=== PATIENT | female | born 1960 | race Two or more races ===

== ENCOUNTER 2024-12-25 22:04 | Inpatient (IN) | payer MEDICAID ==
[~2024-12-25] VITALS: Ht 152.4 cm; Wt 86.4 kg
[~2024-12-25 22:04] MED LIST: CANNABIS INH; CYCL-920 PO; FAMO40TA7 PO; HYDR-3964 PO; TRAM50TA2 PO; WALKERFR; ZOF4I PO
--- NOTE | 2024-12-25 22:22 | ELECTROCARDIOGRAPH REPORT ---
[facility] Test Date: 2024-12-25 Test Time: 22:13:28 Pat Name: HOOD DUNCAN Department: EMERGENCY ROOM Room: Gender: F Bulk Mail Technician: NELY : 1960 Requested By: ZOE LEE Order Number: [id number] Reading MD: Measurements Intervals Wiley Rate: 65 P: 8 FL: 184 QRS: -13 QRSD: 96 T: 93 QT: 439 QTc: 457 Interpretive Statements Sinus rhythm Paired ventricular premature complexes Borderline low voltage, extremity leads Nonspecific T abnormalities, lateral leads Please click the below link to view image of tracing.
--- NOTE | 2024-12-25 22:25 | Physician Documentation ---
History of Present Illness ~ Chief Complaint: Nausea Stated Complaint: TRANSFER Time Seen by MD: 22:13 Source: patient, EMS, RN notes reviewed, EMS notes reviewed, old records Mode of Arrival: EMS Exam Limitations: no limitations HPI Chief Complaint: Epigastric pain, nausea and vomiting Caveat: None Independent Historians: Dr. Quan, paramedics History of Present Illness: Patient is a 64-year-old woman that went to [facility] earlier today for epigastric pain, diaphoresis, nausea and vomiting and shortness a breath. Patient was not having any chest pain. Kasey ledbetter arrived to [facility] extremely hypertensive 210/110. Patient was found to have elevated troponins trending upwards consistent with an NSTEMI. Patient was given aspirin, Lovenox and nitro drip. Patient's blood pressure improved and all of the patient's symptoms improved. Patient is currently not having any chest pain or epigastric pain. Patient isn't diaphoretic. Patient has no complaints at this time. Review of systems: All systems were reviewed and are negative except for what is indicated in the history of present illness. Past Medical History: HTN, HLD Past Surgical History: Noncontributory Social History: No tobacco use, no alcohol use, no drug use Medications: Reviewed as documented Nursing Notes Allergies: Reviewed as documented in Nursing Notes Medication Reconciliation Allergies: Coded Allergies: Penicillins (Verified Adverse Reaction, Mild, RASH, 12/25/24) Scheduled Atorvastatin Calcium (Atorvastatin Calcium), 1 TAB PO HS, (Reported) Cyclobenzaprine HCl (Cyclobenzaprine HCl), 1 TAB PO BID, (Reported) Duloxetine HCl (Duloxetine HCl), 1 CAP PO DAILY, (Reported) Losartan Potassium (Losartan Potassium), 1 TAB PO DAILY, (Reported) Omeprazole (Omeprazole), 1 CAP PO QAM, (Reported) Discontinued Medications Famotidine (Famotidine), 1 TABLET PO DAILY, (Reported) Discontinued Reason: patient no longer taking Hydrocodone Bit/Acetaminophen (Hydrocodon-Acetaminophen 5-325), 1-2 TAB PO Q4HPRN, (Reported) Discontinued Reason: patient no longer taking Ondansetron Hcl/Pf (Zofran 4MG/2ML Vial), 4 MG PO Q6H PRN for nausea/vomiting Discontinued Reason: patient no longer taking Tramadol HCl (Tramadol HCl), 2 TABLET PO BID, (Reported) Discontinued Reason: patient no longer taking Walker, Front Wheeled (Walker, Front-wheeled), APPLIC, (DME) Discontinued Reason: patient no longer taking [Cannabis], 1-2 INH DAILY, (Reported) Discontinued Reason: patient no longer taking Review of Systems All Other Systems at this time: Reviewed and Negative ROS Patient denies any other acute symptoms other than above. All other systems are negative Physical Exam Vital Signs: RN Vital Signs have been reviewed: Yes, Heart Rate: 67, Respiratory Rate: 16, BP: 121/69, Pulse Oximetry: 94, Weight: 86.400 Pulse Oximetry Reflects: adequate oxygenation Physical Exam General Appearance: No distress, obese HEENT: Normal OP, moist oral mucosa, PERRL, EOMI Neck: supple, normal ROM, trachea midline Pulmonary: No respiratory distress, CTA, BS equal Cardiac: RRR, no murmur, rub or gallop, GI: nondistended, soft, nontender, normal bowel sounds, no guarding, no rebound Extremities: normal ROM, no swelling, non-tender Skin: intact, dry, warm, no rashes Neuro: AAOx3, speech is clear, no focal motor weakness Psych: normal affect, good eye contact, no apparent hallucination, normal speech Progress Results/Orders Results/Orders Orders - ZOE LEE MD Chest,Single View (12/25/24 22:20) Saline Lock (12/25/24 22:20) Monitor (12/25/24 22:20) Oxygen (12/25/24 22:20) Page Hospitalist (12/25/24 22:25) Fill Out Med Reconciliation (12/25/24 22:25) Nitroglycerin-Tridil 50mg/D5w (Tridil (N (12/25/24 22:30) Page Hospitalist (12/25/24 22:34) Fill Out Med Reconciliation (12/25/24 22:34) Completed Orders - ZOE LEE MD Cbc/Diff (12/25/24 22:20) MG (12/25/24 22:20) Electrocardiogram (12/25/24 22:20) PBNP (12/25/24 22:20) Chest,Single View (12/25/24 22:20) Pt Inr (12/25/24 22:20) PTT (12/25/24 22:20) Hs Troponin I W Calculations (12/25/24 22:20) Hs Troponin I W Calculations (12/26/24 00:20) Hs Troponin I W Calculations (12/26/24 01:20) Medications Received in ER Medications (Trade) Dose Ordered Sig/Aroldo Route PRN Reason Start Time Stop Time Status Last Admin Dose Admin Nitroglycerin/ Dextrose 250 ml @ 0 mls/hr Q0M PRN IV chest pain 12/25/24 22:30 12/25/24 22:41 21 MLS/HR Vital Signs 12/25/24 12/25/24 12/25/24 12/25/24 22:10 22:20 22:41 23:06 Temp 98.4 Pulse 67 74 Resp 16 16 18 B/P (MAP) 121/69 128/76 113/69 (84) Pulse Ox 94 98 Laboratory Tests Test 12/25/24 22:33 White Blood Count 13.4 H Red Blood Count 4.30 Hemoglobin 12.5 Hematocrit 38.0 Mean Corpuscular Volume 88.4 Mean Corpuscular Hemoglobin 29.0 Mean Corpuscular Hemoglobin Concent 32.8 L Red Cell Distribution Width 13.9 Platelet Count 342 Mean Platelet Volume 8.2 Neutrophils (%) (Auto) 92.0 H Lymphocytes (%) (Auto) 5.4 L Monocytes (%) (Auto) 1.8 L Eosinophils (%) (Auto) 0.5 Basophils (%) (Auto) 0.3 Neutrophils # (Auto) 12.3 H Lymphocytes # (Auto) 0.7 L Monocytes # (Auto) 0.2 Eosinophils # (Auto) 0.1 Basophils # (Auto) 0.0 CBC Comment Prothrombin Time 10.5 INR International Normalized Ratio 1.0 Activated Partial Thromboplast Time 23 Coagulation Comments Magnesium Level 1.8 Troponin I High Sensitivity 2145 *H Pro-B-Type Natriuretic Peptide 1114 H Medical Decision Making Additional info obtained from: old records Findings Differential diagnosis includes but is not limited to: Acute coronary syndrome, pulmonary embolus, pericarditis, EKG independent interpretation: Performed at 10:13 p.m.. Normal sinus rhythm, heart rate 65, leftward axis, normal ST segments Chest x-ray, single view, indication: NSTEMI, elevated troponin epigastric pain Independent interpretation: Lungs are clear, normal mediastinum, normal cardiac silhouette, no acute cardiopulmonary process Laboratory data independent interpretation: CBC: LEUKOCYTOSIS OF 13.4 CMP: Na is mildly elevated at 1.25 1st troponin: 2145 2nd troponin: 2877 3rd troponin 2867 BNP: 1114 Emergency department course/medical decision-making: Patient is a 64-year-old woman referred from [facility] for e levated troponin consistent with NSTEMI. Patient was given Lovenox prior to arrival. Patient is on a nitro drip for severe hypertension. Blood pressure has improved. Patient is on 70 micrograms/minute of nitro. This has not required any titration. Patient is currently asymptomatic. Patient will require admission for further cardiac workup. Test results and treatment plan reviewed with the patient. Consultation/communications: 11:37 p.m.: Case discussed with the resident hospitalist, Dr. Reyes for a dmission. He will evaluate the patient. Departure Time of Disposition: 22:23 Disposition: 09 ADMITTED INPATIENT Admitted to Inpatient Unit: to hospitalist Admission Level of Care: PCU with Tele Impression: Primary Impression: NSTEMI (non-ST elevated myocardial infarction) Additional Impression: Hypertensive emergency Condition: Fair Education Educated: Patient Educated regarding: diagnosis, treatment Signature Scribe Signature: No scribe Attestation: No scribe ZOE LEE MD Dec 25, 2024 22:25
[2024-12-25] MEDS: nitroGLYCERIN-Tridil 50MG/D5W 250 ML IV PRN (22:41)
[2024-12-25 22:45] LABS: MEAN PLATELET VOLUME 8.2 FL (7.4-10.4); RED CELL DISTRIBUTION WIDTH 13.9 % (11.5-14.5)
[2024-12-25 22:52] LABS: APTT 23 SECONDS (22-32); INR 1.0 INR
[2024-12-25 23:03] LABS: PRO BRAIN NATRIURETIC PEPTIDE 1114.0 PG/ML (0-125)
--- NOTE | 2024-12-25 23:08 | RADIOLOGY REPORT ---
EXAM: DI CHEST,SINGLE VIEW CLINICAL HISTORY: CP TECHNIQUE: Single AP view of the chest WID: COMPARISON: None FINDINGS: Lines and tubes: None Chest: The heart size and pulmonary vasculature is within normal limits. No pleural effusion, pneumothorax, or consolidation. The osseous structures are grossly intact. Small to moderate hiatal hernia. IMPRESSION: No acute cardiopulmonary abnormality. Small to moderate sized hiatal hernia.
[2024-12-26] VITALS (7 sets, daily range): BP systolic 124–145; BP diastolic 69–77; PULSE 70–78; RESP 11–18; TEMP 97.3–98.6; O2SAT 96–98
[2024-12-26] MEDS ORDERED: LOSA50TA64 PO (00:45)
[2024-12-26] MEDS ORDERED: OMEP20CA16 PO (00:45)
[2024-12-26] MEDS ORDERED: ATOR20TA66 PO (00:45)
[2024-12-26] MEDS ORDERED: DULO20CA18 PO (00:45)
[2024-12-26] MEDS ORDERED: magnesium hydroxide 30ml (MOM) UD suspension PO PRN (01:00)
[2024-12-26] MEDS ORDERED: ondansetron/PF 4mg/2ml inj IV PRN ×2 (01:00→13:05)
[2024-12-26] MEDS ORDERED: magnesium Cl slow-release 64mg tablet PO PRN (01:00)
[2024-12-26] MEDS ORDERED: magnesium sulf-water 4G/100mL 100 ML IV PRN (01:00)
[2024-12-26] MEDS ORDERED: potassium Cl 20 mEq SR tablet PO PRN ×2 (01:00)
[2024-12-26] MEDS ORDERED: mag hydrox/Alum hydrox/simeth 30ml oral suspension PO PRN (01:00)
[2024-12-26] MEDS ORDERED: potassium Cl 40MEQ/1/2NS 520ml 520 ML IV PRN (01:00)
[2024-12-26] MEDS ORDERED: magnesium sulf-water 2g/50mL 50 ML IV PRN (01:00)
[2024-12-26] MEDS: PERFLUTREN PROTEIN-A MICROSPHR (Optison) 0.22 MG/ML 3ML VIAL IV ONE (01:25)
[2024-12-26 01:43] LABS: MEAN PLATELET VOLUME 8.2 FL (7.4-10.4); RED CELL DISTRIBUTION WIDTH 14.0 % (11.5-14.5)
[2024-12-26 01:59] LABS: CHOL/HDL RATIO 2.4 (0.00-4.99); CREATININE 1.25 MG/DL (0.40-0.90); LDL CHOLESTEROL 64 MG/DL (50-100); TOTAL CARBON DIOXIDE 23.7 MMOL/L (24-32); eCRCL 34 ML/MIN; eGFR 43 ML/MIN
[2024-12-26] MEDS: heparin 10,000 units/1 ML INJ IV ONE (02:05)
--- NOTE | 2024-12-26 02:06 | HISTORY AND PHYSICAL-Residence ---
History & Physical Providers to CC Resident Creating Document: ERUMTAMERA EGAN ~ History of Present Illness Reason for Admit\Complaint: Vomitting,Sweating History of Present Illness This is a 64-year-old with known history of hypertension fibromyalgia was transferred from [facility] for epigastric pain, nausea and vomitting and was found to have elevated troponins, therefore she was sent to [facility] for further management. Patient states that in the morning at 9:00 o clock she started having episodes of vomiting, sweating and she could not eat or drink anything because of vomiting.In the afternoon she started developing a epigastric pain followed by fast breathing which prompted her to go to [place] [facility] ER. CT Scan with IV contrast was also done in [place] which ruled out ruptured peptic ulcer, pancreatitis. At [place] BP 210/110 , received IV labetalol 40 mg iv push and nitroglycerin drip at [place]. Patient reports 10 episodes of vomiting total. Apart from that patient reports chronic history of pain in all over her body for which she cannabis which help her in pain. In addition to that she had chronic abdominal pain on and off since many years due to hiatal hernia and she mentions she is due for her surgery soon. Allergies: Coded Allergies: Penicillins (Verified Adverse Reaction, Mild, RASH, 12/25/24) Home Medications Home Medications Active Reported Atorvastatin Calcium 20 Mg Tablet 1 Tab PO HS Losartan Potassium 50 Mg Tablet 1 Tab PO DAILY Duloxetine HCl 20 Mg Capsule.dr 1 Cap PO DAILY Omeprazole 20 Mg Capsule.dr 1 Cap PO QAM Cyclobenzaprine HCl 5 Mg Tablet 1 Tab PO BID Past Medical History Past Medical History Hypertension Hiatal hernia Past Surgical History Surgical History Comment Partial hysterectomy Bladder lift Right knee surgery Family History Family History: FH: COPD (chronic obstructive pulmonary disease) (Father Emphysema) FH: heart disease (Mother and father heart disease) FH: thyroid disease (Father) Past Social History Social History Comment Occasionally smokes cigarette Occasional alcohol drink Canabis user Occupation: employed ROS All Other Systems: Reviewed and Negative ROS All reviewed and negative except epigastric pain, vomitting, bilatera lower extremity swelling and dilated tortous veins on both legs noted. Exam Vitals: Vital Signs Date Time Temp Pulse Resp B/P (MAP) Pulse Ox O2 Delivery O2 Flow Rate FiO2 12/26/24 00:21 62 16 141/73 (95) 96 12/25/24 22:10 98.4 General: General: awake, alert oriented to place, time, and person HEENT: No pallor present, no icterus, moist mucous membranes Neck: No masses and tenderness Resp: Unlabored. Lungs clear to auscultation bilaterally. Chest: Normal expansion. Cardiovascular: Regular Rate and rhythm, normal S1 and S2 without murmur, rub or gallop Abdomen: Soft and non tender and no organomegaly, no guarding and rigidity, bowel sounds present Neuro: No focal weakness in the upper and lower limb muscles, power of the muscles 5/5 bilateral upper and lower extremities, normal reflexes bilaterally. Cranial nerves intact Extremities: No cyanosis,clubbing, bilateral lower leg swelling, dilated tortuos veins in both legs noted. Skin: Warm and Dry. Psych: Normal affect Diagnostic Data Last Recorded Lab Results: 12/26/2412812/26/24128 Diagnostic Data: Laboratory Tests Test 12/25/24 22:33 Prothrombin Time 10.5 SECONDS (9.0-12.0) INR International Normalized Ratio 1.0 INR Activated Partial Thromboplast Time 23 SECONDS (22-32) Coagulation Comments Advance Care Planning Advanced Care plannin - 30 Minutes (I spent 17 minutes in discussing various resuscitative measures with the patient and she chose to be full) Additional Plan This is a 64-year-old with known history of hypertension fibromyalgia was transferred from [facility] for epigastric pain, nausea and vomitting and was found to have elevated troponins, therefore she was sent to [facility] for further management. Patient states that in the morning at 9:00 o clock she started having episodes of vomiting, sweating and she could not eat or drink anything because of vomiting.In the afternoon she started developing a epigastric pain followed by fast breathing which prompted her to go to [place] [facility] ER. She denies chest pain and dizziness. Plan Acute Coronary Syndrome/NSTEMI EKG sinus rhythm, no stemi. VINH score is 3 Tropnins trending upward T x3 2145/2877/2867 Pro Bnp 1114 Patient received aspirin 324 mg, lovenix 40 at [facility]. Received nitroglycern drip and heparin drip Started on aspirin 81 mg, atorvastatin 40 mg, metoprolol succinate 25 mg Consult Cardiology Hypertension Emergency At [place] BP 210/110 , received IV labetalol 40 mg iv push and nitroglycerin drip at [facility]. Patient here at [facility] started nitroglycern drip at 70 ,titrated to 30 mcg Monitor Signs of end organ damage. Acute kidney Injury likely due to hypertensive emergency or due to recent adminstration of iv contrast Creatinine 1.25 baseline creatinine unknown held losartan Held fluids as patient Pro Bnp is 1114 and bilateral leg swelling. Monitor Blood Pressure Fibromyalgia Continue Cymbalta 20 mg PO DVT Prophylaxis: SCD Code Status: Full Code Date of Service: Dec 26, 2024 Billing Provider: FRANCESCO OLEARY MD, SANJAY, RES Dec 26, 2024 02:06
[2024-12-26] MEDS: heparin 25,000 UNIT/250ml bag 250 ML IV PRN (02:08)
[2024-12-26] MEDS: MESSAGE TO NURSING IV ONE ×2 (02:38→09:35)
[2024-12-26] MEDS ORDERED: TIRZ5PEN3 SUBCUT (05:28)
[2024-12-26] MEDS ORDERED: DICL-157 PO (05:28)
[2024-12-26] MEDS: K and/or MAG REPLACEMENT MC SCH (08:00)
[2024-12-26] MEDS: docusate sod 100mg capsule PO SCH (08:00)
[2024-12-26] MEDS: duloxetine 20mg capsule.DR PO SCH (08:12)
[2024-12-26] MEDS: metoprolol succinate 25mg (24-HOUR) SR. Tablet PO SCH (08:13)
[2024-12-26] MEDS: pantoprazole 40mg Tablet.DR PO SCH (08:15)
[2024-12-26 09:07] LABS: APTT 31 SECONDS (22-32)
[2024-12-26] MEDS ORDERED: heparin 25,000 UNIT/250ml bag 250 ML IV PRN (09:22)
[2024-12-26] MEDS: heparin 10,000 units/1 ML INJ IV PRN (09:24)
--- NOTE | 2024-12-26 10:59 | CONSULTATION REPORT ---
Cardiac Consultation Report Providers to CC ~ Subjective Subjective Cardiology consult: Previously asymptomatic 64-year-old female was camping when she suddenly began to experience severe nausea went to the local emergency room was found to be very hypertensive. Multiple episodes of vomiting. Had epigastric pain. Resting electrocardiogram was unremarkable. She was treated as GI distress and hypertensive car crisis. Subsequently troponins liv to two and she was transferred for further care and placed on intravenous heparin. She is pain-free at this time. I asked for the director of technology to come in an echocardiogram performed with normal wall motion noted. She plans to have left total shoulder surgery with Dr. Joselo Nru in a few weeks... She recognized me and said that I saw her a week or two ago when she was completely asymptomatic in and was scheduled for surgery Medications THC for pain relief. Atorvastatin losartan duloxetine omeprazole cyclobenzaprine. She has chronic reflux chronic myofascial pain hypertension. He does not smoke. No recreational drug use. Objective Vitals Vital Signs Date Time Temp Pulse Resp B/P (MAP) Pulse Ox O2 Delivery O2 Flow Rate FiO2 12/26/24 08:14 78 12/26/24 08:00 18 96 Room Air 12/26/24 06:58 98.1 124/69 (87) Lab Results: 12/26/24 0129 12/26/24 0129 Objective Carotid no bruit chest clear to auscultation percussion heart no murmur no S3 gallop no rub abdomen active bowel sounds nontender no bruits pulses plus two upper and lower extremities no edema. Speech fluent no obvious lateralizing sign of a stroke. Coagulation Studies Laboratory Tests Test 12/25/24 22:33 12/26/24 08:13 Prothrombin Time 10.5 SECONDS (9.0-12.0) INR International Normalized Ratio 1.0 INR Activated Partial Thromboplast Time 31 SECONDS (22-32) APTT (Heparin Protocol) 31 SECONDS (45-60) L Coagulation Comments Problem\Assessment\Plan Additional Plan Impression non ST elevated myocardial infarction. Recommendation diagnostic coronary angiography intervention as may be needed. Risks benefits alternatives discussed with patient and she would like to proceed. Risks include and not restricted to stroke myocardial infarction renal failure neurologic vascular complications bleeding complications allergic reaction emergency coronary bypass grafting and its attendant complications. SAVI VALLADARES MD Dec 26, 2024 10:59
[2024-12-26] MEDS: normal saline 1000ml 1,000 ML IV SCH ×2 (11:10→13:18)
[2024-12-26] MEDS ORDERED: fentaNYL/PF 50MCG/1 ML 2ML syringe ONE (11:12)
[2024-12-26] MEDS ORDERED: LIDOcaine 1% 30ml preserv. free vial ONE (11:12)
[2024-12-26] MEDS ORDERED: midazolam 1 mg/ML 2ml injection ONE (11:13)
[2024-12-26] MEDS ORDERED: iohexol 350 MG/ML 50ML vial IV ONE (11:13)
--- NOTE | 2024-12-26 12:46 | CARDIOLOGY REPORT ---
APPROVED REPORT EXAM: Comprehensive 2D, Doppler, and color-flow Echocardiogram. Patient Location: 3014 [address] Blood Pressure: 124/69 mmHg Heart Rate: 72 bpm Rhythm: SINUS Indications CHEST PAIN ELEVATED PROBNP (1114) HS TROPONIN 2145, 2877, 2867 HYPERTENSION HYPERLIPIDEMIA Medical Superintendent: Curtis Dan MD Previous echo: none available (after hours) 2D Dimensions IVSd 1.1 (0.7-1.1cm) LVDd 4.1 cm PWd 1.1 (0.7-1.1cm) IVSs 1.4 (0.8-1.2cm) LVDs 2.6 (2.5-4.0cm) PWs 1.7 (0.8-1.2cm) LVOT Diameter 2.03 (1.8-2.4cm) LVEF(%) 65.5 (>50%) Ao Asc Diam.3.28 cmFS (%) 35.6 % SV 47.5 ml CO 3.8 L/min M-Mode Dimensions Left Atrium(MM) 2.71 (2.5-4.0cm) Aortic Root 2.45 (2.2-3.7cm) Aortic Cusp Exc 2.01 (1.5-2.0cm) MV EPSS 0.0 (<0.5cm) Aortic Valve AoV Peak Phil. 163.4 cm/s AoV VTI 32.2 cm AO Peak GR. 10.7 mmHg AO Mean GR. 6 mmHg LVOT VTI 29.30 cm LVOT Peak Phil. 122.3 cm/s ZURI(VTI)/BSA 2.93 cm2/m2 ZURI (VTI) 2.93 cm2 Mitral Valve MV E Velocity 83.4 cm/s MV Peak Gr. 5 mmHg MV DECEL TIME 212 ms MV A Velocity 107.5 cm/s MV PHT 44 ms E/A Ratio 0.8 MVA (PHT) 5.00 cm2 MV WSug958.4 cm/s TDI Medial E' P. V 6.18 cm/s E/Medial E' 13.5 Tricuspid Valve TR P. Velocity 253 cm/s RAP ESTIMATE 10 mmHg TR Peak Gr. 26 mmHg RVSP 36 mmHg Pulmonary Vein S1 Velocity 69.5 cm/s D2 Velocity 34.9 cm/s PVa Citksrio04.4 cm/s PVa Koaepvlv19 msec LEFT VENTRICLE Normal LV size and wall thickness. Overall systolic function is normal. Overall LVEF is 60-65%. RIGHT VENTRICLE RV appears normal size and function. ATRIA LA size is normal. AORTIC VALVE Trileaflet AV appears mildly sclerotic without stenosis or insufficiency. MITRAL VALVE Mild MV annular calcification without stenosis. Trace regurgitation. TRICUSPID VALVE TV appears structurally normal with trace regurgitation. PULMONIC VALVE Normal PV without stenosis, physiologic insufficiency. GREAT VESSELS Aortic root is normal in size. Ascending aorta is normal in size. PERICARDIUM Normal pericardium. No effusion. Other Information Study Quality: Adequate Conclusion Overall LVEF is 60-65%. Normal LV size and wall thickness. Overall systolic function is normal. RV appears normal size and function. Trileaflet AV appears mildly sclerotic without stenosis or insufficiency. Mild MV annular calcification without stenosis. Trace regurgitation. TV appears structurally normal with trace regurgitation. Normal PV without stenosis, physiologic insufficiency. Normal pericardium. No effusion.
--- NOTE | 2024-12-26 12:58 | CARDIAC CATH REPORT ---
Cardiology Post Cath Findings Findings Findings: Cardiology progress note post catheterization: Uncomplicated left heart catheterization coronary angiography left ventriculography. Findings 1. Apical akinesis hyper dynamic mid left ventricle. Ejection fraction 70+%. 2. Smooth normal left coronary artery and right coronary artery. Comment: Patient has Takotsubo's cardiomyopathy. Recommendation: At beta-hermilo and continue. Plavix start continue. Patient intolerant of aspirin. Continue home medications. She is on losartan and that dose may need to be reduced depending on her blood pressure with beta hermilo. Bedrest for 6 hours. Ambulate vigorously in a.m. if stable could be discharged on 12/27. SAVI VALLADARES MD Dec 26, 2024 12:58
[2024-12-26] MEDS ORDERED: OXAZEpam 15mg capsule PO PRN (13:05)
[2024-12-26] MEDS ORDERED: HYDROcodone/acetaminophen 10/325mg tab PO PRN (13:05)
[2024-12-26] MEDS ORDERED: DICL75TA5 PO (13:10)
[2024-12-26] MEDS ORDERED: CYCL5TAB4 PO (13:10)
[2024-12-26] MEDS ORDERED: OMEP20CA15 PO (13:10)
[2024-12-26] MEDS: TIRZEPATIDE 5 MG/0.5 ML SQ SCH (13:15)
--- NOTE | 2024-12-26 16:04 | PROGRESS NOTE- Residence ---
Progress Note - Resident Providers to CC Resident Creating Document: LAYA HARRINGTON RES ~ Antibiotic Timeout Antibiotic Ordered?: No Subjective Patient seen and examined today. Denies any chest pain or abdominal now. On- call education managers-Dr. Dan was consulted and she was taken to cardiac catheterization and was brought back Objective Vital Signs Date Time Temp Pulse Resp B/P (MAP) Pulse Ox O2 Delivery O2 Flow Rate FiO2 12/26/24 15:53 97.3 71 13 125/70 (88) 97 Room Air Result Diagram: 12/26/24 0129 12/26/24 0129 General: Alert and oriented x 4 HEENT: Normocephalic and atraumatic. Pupils equal round and reactive to light and accommodation. Extraocular movements intact. Oral and nasal mucosa moist Neck: Trachea is in midline. No masses or JVD Lungs: Bilateral normal breath sounds. No crackles, rhonchi or wheezes Heart: Regular rate and rhythm. S1-S2 normal. No rubs or murmurs Abdomen: Soft, nontender and nondistended. Bowel sounds present SUPERVISING APPRAISER: No gross sensory or motor abnormalities Extremities: No cyanosis, clubbing or edema Skin: Warm and dry Coagulation Studies Laboratory Tests Test 12/25/24 22:33 12/26/24 08:13 Prothrombin Time 10.5 SECONDS (9.0-12.0) INR International Normalized Ratio 1.0 INR Activated Partial Thromboplast Time 31 SECONDS (22-32) APTT (Heparin Protocol) 31 SECONDS (45-60) L Coagulation Comments Assessment Assessment This is a 64-year-old with known history of hypertension fibromyalgia was transferred from [facility] for epigastric pain, nausea and vomitting and was found to have elevated troponins, therefore she was sent to [facility] for further management. Patient states that in the morning at 9:00 o clock she started having episodes of vomiting, sweating and she could not eat or drink anything because of vomiting.In the afternoon she started developing a epigastric pain followed by fast breathing which prompted her to go to [facility] ER. She denies chest pain and dizziness. Admitted for further management Plan Plan NSTEMI Apical akinesis/takotsubo cardiomyopathy Cardiac catheterization done by Dr. Dan Recommended beta hermilo, Plavix and statin Discontinued aspirin Continue Plavix 75 mg p.o. daily, metoprolol succinate 25 mg p.o. daily and Lipitor 20 mg p.o. daily LDL 64. A1c 5.5 Discontinued heparin drip. Echocardiogram: LVEF 60-65% without any significant wall or valvular abnormalities Hypertension Emergency At [facility] BP 210/110 , received IV labetalol 40 mg iv push and nitroglycerin drip at [facility]. Patient here at [facility] started nitroglycern drip at 70 ,titrated to 30 mcg 12/26/2024: Discontinue nitro drip. Continue home medication losartan 50 mg p.o. daily and started metoprolol succinate 25 mg p.o. daily Acute kidney Injury likely due to hypertensive emergency Creatinine 1.25 baseline creatinine unknown held losartan Held fluids as patient Pro Bnp is 1114 and bilateral leg swelling. Monitor Blood Pressure 12/26/2024: Continue IV fluids. Monitor kidney function Fibromyalgia Continue Cymbalta 20 mg PO Disposition: Possible discharge in a.m. Laya Harrington MD Internal Medicine Resident, PGY 3 Date of Service: Dec 26, 2024 Billing Provider: KARLA REVELES MD Common Visit Codes: [id number] INP/OBS CARE(HIGH) LAYA HARRINGTON RES Dec 26, 2024 16:04 KARLA REVELES MD Dec 26, 2024 18:16
--- NOTE | 2024-12-26 16:12 | CARDIOLOGY REPORT ---
DATE OF SERVICE: 12/26/2024 DICTATING PHYSICIAN: Aki Dan MD PROCEDURES: * Left heart catheterization. * Left ventricular angiography. * Selective right and left coronary arteriography. * Right iliofemoral arteriogram, Angio-Seal application. * Conscious sedation administration, 30 minutes BRIEF HISTORY AND INDICATION: A 64-year-old female was transferred for troponin rise, incessant nausea and vomiting, initially thought to be GI, subsequently, troponin was 2.8/2.6. She was placed on heparin, brought under chest pain control, epigastric-type pain with beta blockers, nitrates, and heparin. Risks, benefits, and alternatives of diagnostic heart catheterization for a non-ST elevated MS were discussed with her, and she has decided to proceed. She needs left shoulder surgery. She was camping at the time of the onset. Usually, she is asymptomatic. Risks include, not restricted to, , stroke, myocardial infarction, renal failure, neurologic or vascular complications, bleeding complications, and allergic reaction. Emergency intervention and its attendant complications including comorbid bypass grafting. TECHNIQUE: Following the usual sterile preparation and draping, the right groin was infiltrated with 10 mL of 1% lidocaine and local anesthetic. Conscious sedation was achieved with 2 mg Versed and 100 mcg of fentanyl. Using single wall puncture technique with J-tip guidewire lead, a 6-Hungarian sheath was introduced to the right femoral artery. Selective left and right coronary arteriography was performed with 6-Hungarian Margo-shaped catheters, left ventriculography in right anterior oblique projection with 6-Hungarian straight pigtail catheter. Catheter exchanges were under fluoroscopic guidance with J-tip guidewire lead. A termination of right iliofemoral arteriogram was performed. Angio-Seal was applied in laboratory machinist. Hemostasis was obtained. Peripheral pulse was intact. There were no complications. A 96 mL of Omnipaque 350 contrast was administered. Fluoroscopy time was 2.4 minutes. Radiation exposure was 4161 cGy per cm2. FINDINGS: A 64-year-old female, 5 feet, 190 pounds, AO 101/50, LV 101/2-7. Left ventricular ejection fraction 70%, hyperdynamic mid ventricle completely occluded. Walden small akinetic segment. No mitral regurgitation. Smooth left main coronary, smooth left anterior descending and left circumflex. Smooth right coronary artery, posterior descending, and posterolateral branches. RESULTS: * Hyperdynamic left ventricle, ejection fraction of 70%, mid ventricle completely obstructed. Apical small segment of akinesis. * Smooth left main coronary. * Smooth left anterior descending, left circumflex. * Smooth right coronary. COMMENT: The patient had Takotsubo cardiomyopathy, stress induced. Another possibility was dehydration while camping with clot formation that has not resolved. RECOMMENDATIONS: Continued medical therapy unchanged, beta hermilo, Plavix. She is unable to take aspirin due to chronic gastritis. There is no cardiac contraindication to proceed with left shoulder surgery within the next month. Aki Dan MD TID: [id number] RECEIPT: [id number] TR/PIEDAD cc: Joselo Nur [facility]
[2024-12-26] MEDS: HYDROcodone/acetaminophen 5mg/325mg tablet PO PRN (17:23)
[2024-12-26 19:08] LABS: LEUKOCYTE ESTERASE ,URINE NEGATIVE (Neg); NITRITES, URINE NEGATIVE (Neg); OCCULT BLOOD,URINE SMALL (Neg)
[2024-12-26 19:10] LABS: UA COLLECTION TYPE NON-SPECIFIED
[2024-12-26 19:12] LABS: MUCUS STRANDS FEW /LPF (Neg); SQUAMOUS EPITHELIAL CELL,UR FEW /LPF (FEW)
[2024-12-26 19:23] LABS: URINE AMPHETAMINE SCREEN NEGATIVE (Neg); URINE BARBITUATE SCREEN NEGATIVE (Neg); URINE BENZODIAZEPINES SCREEN POSITIVE (Neg); URINE CANNABINOID SCREEN POSITIVE (Neg); URINE COCAINE SCREEN NEGATIVE (Neg); URINE METHADONE SCREEN NEGATIVE (Neg); URINE OPIATE SCREEN POSITIVE (Neg); URINE PHENCYCLIDINE SCREEN NEGATIVE (Neg)
[2024-12-26] MEDS ORDERED: DICLOFENAC SODIUM 75 MG PO SCH (20:00)
[2024-12-26] MEDS ORDERED: non-formulary drug (Diclofenac Sodium 1 TAB) PO SCH (20:00)
[2024-12-27 02:00] VITALS: BP 138/76; PULSE 67; RESP 18; TEMP 97.9; O2SAT 98
[2024-12-27 07:05] VITALS: BP 136/77; PULSE 65; RESP 18; TEMP 97.3; O2SAT 99
[2024-12-27 07:18] LABS: MEAN PLATELET VOLUME 8.5 FL (7.4-10.4); RED CELL DISTRIBUTION WIDTH 13.9 % (11.5-14.5)
[2024-12-27 07:32] LABS: APTT 22 SECONDS (22-32); INR 1.0 INR
[2024-12-27 07:35] LABS: CREATININE 1.06 MG/DL (0.40-0.90); PHOSPHORUS 2.8 MG/DL (2.3-4.5); TOTAL CARBON DIOXIDE 23.1 MMOL/L (24-32); eCRCL 40 ML/MIN; eGFR 53 ML/MIN
[2024-12-27 08:00] VITALS: RESP 18; O2SAT 99
[2024-12-27] MEDS ORDERED: pantoprazole 40mg Tablet.DR PO SCH (08:00)
[2024-12-27 11:30] VITALS: BP 124/72; PULSE 67; RESP 15; TEMP 98.4; O2SAT 97
[2024-12-27] MEDS ORDERED: LOSA50TA64 PO (13:38)
[2024-12-27] MEDS ORDERED: CLOP75TA34 PO (13:38)
[2024-12-27] MEDS ORDERED: METO-395 PO (13:38)
[2024-12-27] MEDS ORDERED: FURO-150 PO (14:01)
--- NOTE | 2024-12-27 20:21 | DISCHARGE SUMMARY-Residence ---
Discharge Summary Providers to CC Resident Creating Document: NESTOR RAMAHE, RES ~ Discharge Summary Admission Diagnosis: NSTEMI Hospital Course DATE OF ADMISSION: 12/25/2024 DATE OF DISCHARGE: 12/27/2024 Hospital course: This is a 64-year-old with known history of hypertension fibromyalgia was transferred from [facility] for epigastric pain, nausea and vomitting and was found to have elevated troponins, therefore she was sent to [facility] for further management. Patient states that in the morning at 9:00 o clock she started having episodes of vomiting, sweating and she could not eat or drink anything because of vomiting.In the afternoon she started developing a epigastric pain followed by fast breathing which prompted her to go to [place] [facility].She denies chest pain and dizziness. Admitted for further management NSTEMI ruled out Apical akinesis/takotsubo cardiomyopathy Dr. Issa was consulted Recommended beta hermilo, Plavix and statin Discontinued aspirin Continue Plavix 75 mg p.o. daily, metoprolol succinate 25 mg p.o. daily and Lipitor 20 mg p.o. daily LDL 64. A1c 5.5 Discontinued heparin drip. Echocardiogram: LVEF 60-65% without any significant wall or valvular abnormalities Dr. Issa did heart catheterization and showed apical small segment of akinesia, hyperdynamic left ventricle, smoked left main coronary, smoked left anterior descending and left circumflex isthmus right coronary. He recommended beta-hermilo and Plavix and discharged home Hypertension Emergency At [place] BP 210/110 , received IV labetalol 40 mg iv push and nitroglycerin drip at [facility]. Patient here at [facility] started nitroglycern drip at 70 ,titrated to 30 mcg 12/26/2024: Discontinue nitro drip. Continue home medication losartan 50 mg p.o. daily and started metoprolol succinate 25 mg p.o. daily 12/27/2024; blood pressure is stable, we will continue metoprolol 25 and lisinopril restarted Acute kidney Injury likely due to hypertensive emergency Creatinine 1.25, baseline creatinine unknown held losartan , Held fluids as patient Pro Bnp is 1114 and bilateral leg swelling. Monitor Blood Pressure, lisinopril restarted today Fibromyalgia Continue Cymbalta 20 mg PO ECHOCARDIOGRAPHY SHOWED: Overall LVEF is 60-65%. Normal LV size and wall thickness. Overall systolic function is normal. RV appears normal size and function. Trileaflet AV appears mildly sclerotic without stenosis or insufficiency. Mild MV annular calcification without stenosis. Trace regurgitation. TV appears structurally normal with trace regurgitation. Normal PV without stenosis, physiologic insufficiency. Normal pericardium. No effusion. Laboratory Tests Test 12/25/24 22:33 12/26/24 00:41 12/26/24 01:29 12/26/24 08:13 White Blood Count 13.4 X10'3 10.4 X10'3 Red Blood Count 4.30 X10'6 4.23 X10'6 Hemoglobin 12.5 g/dl 12.4 g/dl Hematocrit 38.0 % 37.2 % Mean Corpuscular Volume 88.4 FL 87.8 FL Mean Corpuscular Hemoglobin 29.0 PG 29.2 PG Mean Corpuscular Hemoglobin Concent 32.8 g/dL 33.3 g/dL Red Cell Distribution Width 13.9 % 14.0 % Platelet Count 342 X10'3 342 X10'3 Mean Platelet Volume 8.2 FL 8.2 FL Neutrophils (%) (Auto) 92.0 % 86.6 % Lymphocytes (%) (Auto) 5.4 % 9.5 % Monocytes (%) (Auto) 1.8 % 3.5 % Eosinophils (%) (Auto) 0.5 % 0.1 % Basophils (%) (Auto) 0.3 % 0.3 % Neutrophils # (Auto) 12.3 X10'3 9.0 X10'3 Lymphocytes # (Auto) 0.7 X10'3 1.0 X10'3 Monocytes # (Auto) 0.2 X10'3 0.4 X10'3 Eosinophils # (Auto) 0.1 X10'3 0.0 X10'3 Basophils # (Auto) 0.0 X10'3 0.0 X10'3 CBC Comment Prothrombin Time 10.5 SECONDS INR International Normalized Ratio 1.0 INR Activated Partial Thromboplast Time 23 SECONDS 31 SECONDS Coagulation Comments Magnesium Level 1.8 MG/DL 1.8 MG/DL Troponin I High Sensitivity 2145 ng/L 2877 ng/L 2867 ng/L Pro-B-Type Natriuretic Peptide 1114 PG/ML Troponin I High Sens Percent Delta 34 % 0 % Troponin I Hi Sens Absolute Change 732 ng/L -10 ng/L Sodium Level 142 MMOL/L Potassium Level 3.9 MMOL/L Chloride Level 109 MMOL/L Carbon Dioxide Level 23.7 MMOL/L Anion Gap 9 Blood Urea Nitrogen 18 MG/DL Creatinine 1.25 MG/DL Estimated GFR/1.73 m2 43 ML/MIN BUN/Creatinine Ratio 14.4 Glucose Level 114 MG/DL Hemoglobin A1c 5.5 % Calcium Level 8.9 MG/DL Total Bilirubin 0.4 MG/DL Aspartate Amino Transf (AST/SGOT) 10 U/L Alanine Aminotransferase (ALT/SGPT) 24 U/L Alkaline Phosphatase 92 IU/L Total Protein 6.8 G/DL Albumin 3.5 G/DL Globulin 3.3 G/DL Albumin/Globulin Ratio 1.1 Triglycerides Level 89 MG/DL Cholesterol Level 134 MG/DL LDL Cholesterol 64 MG/DL HDL Cholesterol 55 MG/DL Cholesterol/HDL Ratio 2.4 Chemistry Comments APTT (Heparin Protocol) 31 SECONDS Test 12/26/24 18:38 12/27/24 06:20 Urine Specimen Description Non-specified Urine Color Yellow Urine Clarity Clear Urine pH 6.0 Urine Specific [place] 1.015 Urine Protein Trace mg/dl Urine Glucose (UA) Negative mg/dl Urine Ketones Negative mg/dl Urine Occult Blood Small Urine Nitrite Negative Urine Bilirubin Negative Urine Urobilinogen 0.2 E.U/dL Urine Leukocyte Esterase Negative Urine RBC 0-2 /HPF Urine WBC 0-4 /HPF Urine Squamous Epithelial Cells Few /LPF Urine Bacteria Few /HPF Urine Mucus Few /LPF Volume Urine Centrifuged 10 ml Urine Comment Urine Opiates Screen Positive Urine Methadone Screen Negative Urine Fentanyl Screen Positive Urine Barbiturates Screen Negative Urine Phencyclidine Screen Negative Urine Amphetamines Screen Negative Urine Benzodiazepines Screen Positive Urine Cocaine Screen Negative Urine Cannabinoids Screen Positive Drug Screen Comment White Blood Count 7.9 X10'3 Red Blood Count 3.77 X10'6 Hemoglobin 11.0 g/dl Hematocrit 33.5 % Mean Corpuscular Volume 88.8 FL Mean Corpuscular Hemoglobin 29.1 PG Mean Corpuscular Hemoglobin Concent 32.8 g/dL Red Cell Distribution Width 13.9 % Platelet Count 273 X10'3 Mean Platelet Volume 8.5 FL Neutrophils (%) (Auto) 69.0 % Lymphocytes (%) (Auto) 20.3 % Monocytes (%) (Auto) 8.0 % Eosinophils (%) (Auto) 1.8 % Basophils (%) (Auto) 0.9 % Neutrophils # (Auto) 5.4 X10'3 Lymphocytes # (Auto) 1.6 X10'3 Monocytes # (Auto) 0.6 X10'3 Eosinophils # (Auto) 0.1 X10'3 Basophils # (Auto) 0.1 X10'3 CBC Comment Prothrombin Time 10.3 SECONDS INR International Normalized Ratio 1.0 INR Activated Partial Thromboplast Time 22 SECONDS Coagulation Comments Sodium Level 140 MMOL/L Potassium Level 3.7 MMOL/L Chloride Level 110 MMOL/L Carbon Dioxide Level 23.1 MMOL/L Anion Gap 7 Blood Urea Nitrogen 14 MG/DL Creatinine 1.06 MG/DL Estimated GFR/1.73 m2 53 ML/MIN BUN/Creatinine Ratio 13.2 Glucose Level 75 MG/DL Calcium Level 8.4 MG/DL Phosphorus Level 2.8 MG/DL Magnesium Level 1.7 MG/DL Total Bilirubin 0.4 MG/DL Aspartate Amino Transf (AST/SGOT) 19 U/L Alanine Aminotransferase (ALT/SGPT) 21 U/L Alkaline Phosphatase 75 IU/L Total Protein 5.9 G/DL Albumin 2.9 G/DL Globulin 3.0 G/DL Albumin/Globulin Ratio 1.0 Chemistry Comments Physical exam on discharge day General: Alert and oriented x 4 HEENT: Normocephalic and atraumatic. Pupils equal round and reactive to light and accommodation. Extraocular movements intact. Oral and nasal mucosa moist Neck: Trachea is in midline. No masses or JVD Lungs: Bilateral normal breath sounds. No crackles, rhonchi or wheezes Heart: Regular rate and rhythm. S1-S2 normal. No rubs or murmurs Abdomen: Soft, nontender and nondistended. Bowel sounds present SMALL ENGINE SPECIALIST: No gross sensory or motor abnormalities Extremities: No cyanosis, clubbing or edema Skin: Warm and dry Patient discharged home with following instruction Please follow-up with your PCP in one week. Repeat BMP in one week. Measure your blood pressure at home, monitor the goal of blood pressure his systolic blood pressure less than 130. Take medication as directed. Follow-up with machine castings plasterer, Return to ED if you experience worsening symptoms. Discharge Diagnosis\Comment: Takotsubo cardiomyopathy, stress induced. NSTEMI rule out Hypertension Emergency Acute kidney Injury likely due to hypertensive emergency Operations\Procedures: PROCEDURES: * Left heart catheterization. * Left ventricular angiography. * Selective right and left coronary arteriography. * Right iliofemoral arteriogram, Angio-Seal application. * Conscious sedation administration, 30 minutes RESULTS: * Hyperdynamic left ventricle, ejection fraction of 70%, mid ventricle completely obstructed. Apical small segment of akinesis. * Smooth left main coronary. * Smooth left anterior descending, left circumflex. * Smooth right coronary. DATE OF SERVICE: 12/26/2024 Consultants: Audio Recording Engineer Dr. Dan Complications: None Condition on DC: Stable New Medications: Furosemide (Lasix) 20 Mg Tablet 20 MG PO DAILY for 14 Days, #14 TAB Clopidogrel Bisulfate (Clopidogrel) 75 Mg Tablet 75 MG PO DAILY for 30 Days, #30 TAB Do not stop medication unless instructed by prescriber. Losartan Potassium (Losartan Potassium) 50 Mg Tablet 50 MG PO DAILY for 30 Days, #30 TAB Metoprolol Succinate (Metoprolol Succinate) 25 Mg Tab.sr.24h 25 MG PO DAILY for 30 Days, #30 TAB.SR Continued Medications: Atorvastatin Calcium (Atorvastatin Calcium) 20 Mg Tablet 1 TAB PO HS Cyclobenzaprine HCl (Cyclobenzaprine HCl) 5 Mg Tablet 1 TAB PO BID Duloxetine HCl (Duloxetine HCl) 20 Mg Capsule.dr 1 CAP PO DAILY Omeprazole (Omeprazole) 20 Mg Capsule.dr 1 CAP PO DAILY Tirzepatide (Zepbound) 5 Mg/0.5 Ml Pen.injctr 5 MG SUBCUT Q7D Discontinued Medications: Diclofenac Sodium (Diclofenac Sodium) 75 Mg Tablet.dr 1 TAB PO Q12H Discharge Summary: See hospital course *Problems/Diagnosis: (1) Stress-induced cardiomyopathy Total Time Spent on D/C: > 30 Minutes Date of Service: Dec 27, 2024 Billing Provider: BERNADETTE ANTHONY MD Common Visit Codes: 69303-GMW/OBS DISCH DAY >30min TIANNA RAM RES Dec 27, 2024 20:21 BERNADETTE ANTHONY MD Dec 28, 2024 08:05
== END 2024-12-27 14:45 | disposition home or self-care (01) | DRG 192 ==
LOC: ER 22:04 → ED HOLD 23:43 → PCU 3S 12-26 03:59
PROVIDERS: ADMIT Surgery Surgical Critical Care; ATTEND Internal Medicine
PROC: 4A023N7 Measurement of Cardiac Sampling and Pressure, Left Heart, Percutaneous Approach (ICD-10-PCS; principal; 2024-12-26)
PROC: B2111ZZ Fluoroscopy of Multiple Coronary Arteries using Low Osmolar Contrast (ICD-10-PCS; 2024-12-26)
PROC: B2151ZZ Fluoroscopy of Left Heart using Low Osmolar Contrast (ICD-10-PCS; 2024-12-26)
PROC: B41F1ZZ Fluoroscopy of Right Lower Extremity Arteries using Low Osmolar Contrast (ICD-10-PCS; 2024-12-26)
DX: I16.1 Hypertensive emergency (principal); N17.9 Acute kidney failure, unspecified; I51.81 Takotsubo syndrome; E78.5 Hyperlipidemia, unspecified; I10 Essential (primary) hypertension; K21.9 Gastro-esophageal reflux disease without esophagitis; M79.7 Fibromyalgia; Z79.899 Other long term (current) drug therapy
CPT/HCPCS: 36415; 71045; 80053; 80061; 80305; 81001; 83036; 83735; 83880; 84100; 84484; 85025; 85610; 85730; 87081; 93005; 93306; 93458; 96365; 97116; 97161; 97530; 99152; 99153; 99285; A6258; C1760; G0378; J1200; J1644; J2003; J2250; J3010; J3490; J7030; Q9967